=== PATIENT | female | born 1960 | race Caucasian/White ===

== ENCOUNTER → 2016-02-07 | Outpatient (CLI) | payer OTHER ==
[~2016-02-07] MED LIST: AMOX875T PO; DICL-201 PO; HYDR-3419 PO; ONDA4TAB10 SL; TRAM-10 PO
[2016-02-07 15:31] LABS: CHOLESTEROL/HDL RATIO 3.7
== END | disposition home or self-care (01) ==
LOC: C.LAB 10:59
PROVIDERS: ATTEND Family Medicine
DX: Z00.00 Encounter for general adult medical examination without abnormal findings (principal); Z13.220 Encounter for screening for lipoid disorders; Z11.59 Encounter for screening for other viral diseases; E55.9 Vitamin D deficiency, unspecified

== ENCOUNTER → 2016-02-08 | Outpatient (CLI) | payer OTHER ==
--- NOTE | 2016-02-08 15:10 | MAMMOGRAPHY REPORT ---
BILATERAL DIGITAL SCREENING MAMMOGRAM WITH CAD: 02/08/2016 CLINICAL HISTORY: Routine screening examination. TECHNIQUE: Bilateral CC and MLO views were obtained. Current study was also evaluated with a Comput er Aided Detection (CAD) system. COMPARISON: Comparison is made to exams dated: 11/24/2014 mammogram, 05/14/2012 mammogram, 01/31/2011 mammogram, 10/29/2009 mammogram - [facility], and 01/04/2007. BREAST COMPOSITION: The tissue of both breasts is almost entirely fatty. FINDINGS: There are stable benign-appearing microcalcifications bilaterally. No suspicious mass, ar chitectural distortion or cluster of new, suspicious microcalcifications is seen. IMPRESSION: ACR BI-RADS CATEGORY 1: NEGATIVE There is no mammographic evidence of malignancy. A 1 year screening mammogram is recommended. The p atient will receive written notification of the results. Approximately 10% of breast cancers are not detected with mammography. A negative mammographic repor t should not delay biopsy if a clinically suggestive mass is present. Davida Castaneda M.D. ay/:02/08/2016 13:55:20 Brand Communications Manager: Malu DEUTSCH(Rigoberto)(M), [facility] letter sent: Normal 1/2 BI-RADS Code: ACR BI-RADS Category 1: Negative
== END | disposition home or self-care (01) ==
LOC: C.MAMM 13:18
PROVIDERS: ATTEND Family Medicine
DX: Z12.31 Encounter for screening mammogram for malignant neoplasm of breast (principal)

== ENCOUNTER → 2016-04-19 | Outpatient (CLI) | payer OTHER ==
--- NOTE | 2016-04-19 12:35 | DIAGNOSTIC IMAGING REPORT ---
LEFT SHOULDER 3 VIEWS HISTORY: Left shoulder pain. Fall. COMPARISON: None. FINDINGS: There is no fracture or dislocation. Soft tissues are unremarkable. Multiple metallic anchors at the humeral head. The left clavicle appears intact. IMPRESSION: No fracture or dislocation within the left shoulder. Electronically signed by: Elton Melo M.D. 04/19/2016 12:34 PM Dictated Date/Time: 04/19/2016 12:29 PM
== END | disposition home or self-care (01) ==
LOC: C.RAD 12:11
PROVIDERS: ATTEND Family Medicine
DX: M25.512 Pain in left shoulder (principal)

== ENCOUNTER → 2016-05-03 | Outpatient (CLI) | payer OTHER | END | disposition home or self-care (01) | LOC: C.CPL 10:35 | PROVIDERS: ATTEND Orthopaedic Surgery | DX: Z01.810 Encounter for preprocedural cardiovascular examination (principal) ==

== ENCOUNTER 2016-06-08 05:04 | Emergency (ER) | payer OTHER ==
[~2016-06-08] VITALS: Ht 162.6 cm; Wt 119.8 kg
[~2016-06-08 05:04] MED LIST changes: -AMOX875T PO; -HYDR-3419 PO; -ONDA4TAB10 SL
[2016-06-08 05:09] VITALS: TEMP 36.4; Ht 162.6 cm; Wt 119.8 kg
[2016-06-08] MEDS ORDERED: ONDANSETRON INJ 2 MG/ML 2 ML VIAL IV STA (05:21)
[2016-06-08] MEDS ORDERED: HYDROmorphone INJ 1 MG/ML SYR IV STA (05:21)
[2016-06-08] MEDS ORDERED: SODIUM CHLORIDE 0.9% 1000ML 1,000 ML IV STA (05:21)
--- NOTE | 2016-06-08 05:26 | EMERGENCY ROOM VISIT NOTE ---
History Report prepared by Mar: Aramis Rogers Under the Supervision of: Dr. Tyson Navarro M.D. First contact with patient: 05:11 Chief Complaint: ABDOMINAL PAIN Stated Complaint: SEVERE ABDOMINAL PAIN History of Present Illness The patient is a 56 year old female who presents to the Emergency Room with complaints of severe left flank pain starting last night and worsening this morning. She reports some pain radiation to the back. She also complains of nausea but denies vomiting. The patient has been having diarrhea. She reports a normal appetite and a normal fluid intake. She denies fevers, chills, chest pain , urinary symptoms, or any other complaints. She notes her current pain is different than her past diverticulitis pain. She denies any history of kidney stones. Source of History: patient Onset: last night Position: other (left flank) Symptom Intensity: severe Timing: worsening Associated Symptoms: + diarrhea, + nausea, No chest pain, No chills, No fevers, No urinary symptoms, No vomiting Review of Systems See HPI for pertinent positives & negatives. A total of 10 systems reviewed and were otherwise negative. Past Medical & Surgical Medical Problems: (1) Shoulder strain (2) Subconjunctival hemorrhage Family History FHx: cancer Social History Smoking Status: Current Every Day Smoker Alcohol Use: occasionally Marital Status: Housing Status: lives alone Occupation Status: employed Current/Historical Medications Scheduled Amoxicillin & Pot Clavulanate (Augmentin 875-125 mg), 875 MG PO BID Diclofenac (Voltaren), 75 MG PO BID Scheduled PRN Hydrocodon/Acetaminophen 5MG/300MG (Vicodin (5MG/300MG)), 1-2 TAB PO Q4H PRN for Pain Ondasetron Odt (Zofran Odt), 4-8 MG SL Q6H PRN for Nausea Tramadol (Ultram), 50 MG PO BID PRN for Pain Allergies Coded Allergies: Codeine (Unverified Allergy, Unknown, loopy feeling, 06/08/16) Acetaminophen (Verified Adverse Reaction, Unknown, "jumping out of my skin ", 06/08/16) Oxycodone (Verified Adverse Reaction, Unknown, "jumping out of my skin", ) Physical Exam Vital Signs Date Time Temp Pulse Resp B/P Pulse Ox O2 Delivery O2 Flow Rate FiO2 06/08/16 06:33 74 18 150/72 95 Room Air 06/08/16 05:09 36.4 88 20 186/85 100 Room Air Physical Exam GENERAL: Patient is uncomfortable appearing and in moderate distress. HEENT: No acute trauma, normocephalic atraumatic, mucous membranes moist, no nasal congestion, no scleral icterus. NECK: No stridor, no adenopathy, no meningismus, trachea is midline. LUNGS: No dyspnea. Clear to auscultation and equal bilaterally. No wheeze, no rhonchi. HEART: Regular rate and rhythm. No murmurs, rubs, gallops appreciated. ABDOMEN: Soft, nontender, bowel sounds positive, no masses appreciated, no peritonitis. BACK: No midline tenderness, mild left CVA tenderness EXTREMITIES: Normal motion all extremities, no cyanosis, no edema. NEUROLOGIC: Alert and oriented, no acute motor or sensory deficits, no focal weakness, cranial nerves grossly intact. SKIN: No rash, no jaundice, no diaphoresis. Medical Decision & Procedures ER Provider Diagnostic Interpretation: CT results as stated below per interpretation by me and the radiologist: CT ABDOMEN AND PELVIS No hydronephrosis or hydroureter. No radiopaque ureteral stone. Diverticulosis, but no evidence for diverticulitis. 2.4 cm left adnexal cyst. May consider nonemergent/outpatient ultrasound to ensure resolution. Remainder of noncontrast study shows no definite evidence for an acute inflammatory process. Radiologist: Rhys Puri MD Laboratory Results 06/08/16 05:25 Red Blood Count 4.75, Mean Corpuscular Volume 94.1, Mean Corpuscular Hemoglobin 31.4, Mean Corpuscular Hemoglobin Concent 33.3, Mean Platelet Volume 8.7, Neutrophils (%) (Auto) 67.3, Lymphocytes (%) (Auto) 24.0, Monocytes (%) (Auto) 7.2, Eosinophils (%) (Auto) 1.0, Basophils (%) (Auto) 0.1, Neutrophils # (Auto) 5.13, Lymphocytes # (Auto) 1.83, Monocytes # (Auto) 0.55, Eosinophils # (Auto) 0.08, Basophils # (Auto) 0.01 06/08/16 05:25 Test 06/08/16 05:25 06/08/16 06:28 White Blood Count 7.63 K/uL (4.8-10.8) Red Blood Count 4.75 M/uL (4.2-5.4) Hemoglobin 14.9 g/dL (12.0-16.0) Hematocrit 44.7 % (37-47) Mean Corpuscular Volume 94.1 fL (80-100) Mean Corpuscular Hemoglobin 31.4 pg (25-34) Mean Corpuscular Hemoglobin Concent 33.3 g/dl (32-36) Platelet Count 279 K/uL (130-400) Mean Platelet Volume 8.7 fL (7.4-10.4) Neutrophils (%) (Auto) 67.3 % Lymphocytes (%) (Auto) 24.0 % Monocytes (%) (Auto) 7.2 % Eosinophils (%) (Auto) 1.0 % Basophils (%) (Auto) 0.1 % Neutrophils # (Auto) 5.13 K/uL (1.4-6.5) Lymphocytes # (Auto) 1.83 K/uL (1.2-3.4) Monocytes # (Auto) 0.55 K/uL (0.11-0.59) Eosinophils # (Auto) 0.08 K/uL (0-0.5) Basophils # (Auto) 0.01 K/uL (0-0.2) RDW Standard Deviation 47.2 fL (36.4-46.3) RDW Coefficient of Variation 13.7 % (11.5-14.5) Immature Granulocyte % (Auto) 0.4 % Immature Granulocyte # (Auto) 0.03 K/uL (0.00-0.02) Anion Gap 7.0 mmol/L (3-11) Est Creatinine Clear Calc Drug Dose 114.4 ml/min Estimated GFR () 112.3 Estimated GFR (Non- 96.9 BUN/Creatinine Ratio 18.5 (10-20) Calcium Level 9.1 mg/dl (8.5-10.1) Total Bilirubin 0.5 mg/dl (0.2-1) Direct Bilirubin 0.1 mg/dl (0-0.2) Aspartate Amino Transf (AST/SGOT) 15 U/L (15-37) Alanine Aminotransferase (ALT/SGPT) 44 U/L (12-78) Alkaline Phosphatase 67 U/L (45-117) Total Protein 7.5 gm/dl (6.4-8.2) Albumin 4.2 gm/dl (3.4-5.0) Lipase 157 U/L (73-393) Urine Color YELLOW Urine Appearance CLEAR (CLEAR) Urine pH 5.0 (4.5-7.5) Urine Specific [place] 1.009 (1.000-1.030) Urine Protein NEG (NEG) Urine Glucose (UA) NEG (NEG) Urine Ketones NEG (NEG) Urine Occult Blood TRACE (NEG) Urine Nitrite NEG (NEG) Urine Bilirubin NEG (NEG) Urine Urobilinogen NEG (NEG) Urine Leukocyte Esterase NEG (NEG) Urine WBC (Auto) 1-5 /hpf (0-5) Urine RBC (Auto) 0-4 /hpf (0-4) Urine Hyaline Casts (Auto) 1-5 /lpf (0-5) Urine Epithelial Cells (Auto) 10-20 /lpf (0-5) Urine Bacteria (Auto) NEG (NEG) Laboratory results as reviewed by me. Medications Administered Medications (Trade) Dose Ordered Sig/[place]dee Route Start Time Stop Time Status Last Admin Dose Admin Hydromorphone HCl (Dilaudid Inj) 1 mg NOW STAT IV 06/08/16 05:21 06/08/16 05:23 DC 06/08/16 05:41 1 MG Ondansetron HCl 4 mg 4 mg NOW STAT IV 06/08/16 05:21 06/08/16 05:23 DC 06/08/16 05:41 4 MG Sodium Chloride (Nss 1000ml) 1,000 ml @ 999 mls/hr Q1H1M STAT IV 06/08/16 05:21 06/08/16 06:21 DC 06/08/16 05:41 999 MLS/HR Amoxicillin/ Clavulanate Potassium (Augmentin Tab) 875 mg ONE ONCE PO 06/08/16 07:00 06/08/16 07:01 DC 06/08/16 06:51 875 MG ED Course 0511: The patient was evaluated in room A09B. A complete history and physical exam was performed. 0521: Sodium Chloride 1000 ml @ 999 mls/hr IV, Zofran Inj 4 mg IV, Dilaudid Inj 1 mg IV 0645: Reevaluated the patient. Discussed results and discharge instructions: She verbalized understanding and agreement. The patient is ready for discharge. Medical Decision Differential: Renal Colic, Pyelonephritis, Hydronephrosis, Appendicitis, Diverticulitis, Retroperitoneal Bleed/Infection, Aortic Pathology, MSK, Neurologic Pathology, amongst other pathologies entertained. 56 yr old female with LLQ pain radiating to left flank acutely this morning with episode yesterday as well. No evidence stone on CT. Large amount of diverticular disease with our clear evidence of infection on non-con CT. WBC OK , no Fever. Seems reasonable to treat as early diverticulitis and thus will treat with Augmentin. Add on Vicodin and Zofran for symptoms control. Discussed need for PCP follow up and to discuss seeing Spun Paste Machine Operator for cyst. Stable, feeling well and non-surgical abdomen. Stable at discharge. Reviewed symptoms requiring return. Impression Primary Impression: Diverticulitis Additional Impressions: Left lower quadrant pain Cyst of left ovary Scribe Attestation The scribe's documentation has been prepared under my direction and personally reviewed by me in its entirety. I confirm that the note above accurately reflects all work, treatment, procedures, and medical decision making performed by me. Departure Information Dispostion Home / Self-Care Prescriptions Amoxicillin & Pot Clavulanate (Augmentin 875-125 mg) 1 Tab Tab 875 MG PO BID for 10 Days, #20 TAB Prov: Tyson Navarro M.D. 06/08/16 Ondasetron Odt (ZOFRAN ODT) 4 Mg Tab 4-8 MG SL Q6H Y for Nausea, #15 TAB Prov: Tyson Navarro M.D. 06/08/16 Hydrocodon/Acetaminophen 5MG/300MG (VICODIN (5MG/300MG)) 1 Tab Tab 1-2 TAB PO Q4H Y for Pain, #15 TAB Prov: Tyson Navarro M.D. 06/08/16 Referrals Linda Ortez MD (PCP) Forms Call Back Authorization, HOME CARE DOCUMENTATION FORM, IMPORTANT VISIT INFORMATION Patient Instructions My [facility] Additional Instructions Please follow up with your primary care provider in the next few days to discuss your symptoms and findings. You should discuss follow up with Gynecology for cyst on left ovary. Return if severe worsening of pain, fevers, vomiting, passing out, blood in stool or other concern. We are here to help. You have received a narcotic pain medication prescription. These medications may cause drowsiness and should not be used with other sedative medications. Do not drive, drink alcohol, perform dangerous activities, nor make important decisions after taking these medications. technician terminal and repeater use or inappropriate use may lead to addiction. You have been examined and treated today on an emergency basis only. This is not a substitute for, or an effort to provide, complete comprehensive medical care. It is impossible to recognize and treat all injuries or illnesses in a single emergency department visit. It is therefore important that you follow up closely with your Primary Physician. Call as soon as possible for an appointment so you can review all labs, imaging and other testing that you had. Return to Emergency Department, call 911 or seek immediate medical attention if you feel your symptoms are worsening. Problem Qualifiers Primary Impression: Diverticulitis Diverticulitis site: large intestine Diverticulitis bleeding: without bleeding Diverticulitis complication: without perforation or abscess Qualified Codes: K57.32 - Diverticulitis of large intestine without perforation or abscess without bleeding
[2016-06-08 05:46] LABS: BASO % 0.1 %; BASO ABS # 0.01 K/uL (0-0.2); COMPLETE YES; HEMATOCRIT 44.7 % (37-47); IG% 0.4 %; LYMPH ABS # 1.83 K/uL (1.2-3.4); MEAN CELL VOLUME 94.1 fL (80-100); MEAN CORPUSCULAR HEMOGLOBIN 31.4 pg (25-34); MEAN CORPUSCULAR HGB CONC 33.3 g/dl (32-36); MEAN PLATELET VOLUME 8.7 fL (7.4-10.4); MONO % 7.2 %; NEUT % 67.3 %; PLATELET COUNT 279 K/uL (130-400); RED BLOOD COUNT 4.75 M/uL (4.2-5.4); WHITE BLOOD COUNT 7.63 K/uL (4.8-10.8)
[2016-06-08 06:05] LABS: BUN/CREATININE RATIO 18.5 (10-20); CALCIUM 9.1 mg/dl (8.5-10.1); CREATININE 0.7 mg/dl (0.60-1.20); POTASSIUM 3.7 mmol/L (3.5-5.1)
[2016-06-08 06:46] LABS: URINE APPEARANCE CLEAR (CLEAR); URINE BILIRUBIN NEG (NEG); URINE COLOR YELLOW; URINE NITRITE NEG (NEG); URINE SPECIFIC GRAVITY 1.009 (1.000-1.030); UROBILINOGEN NEG (NEG); ZZUR CULT IF INDIC CLEAN CATCH NO
[2016-06-08 06:52] LABS: MANUAL MICROSCOPIC REQUIRED? NO; REVIEW REQ? NO
[2016-06-08] MEDS ORDERED: AMOX875T PO (06:57)
[2016-06-08] MEDS ORDERED: HYDR-3419 PO (06:57)
[2016-06-08] MEDS ORDERED: ONDA4TAB10 SL (06:57)
--- NOTE | 2016-06-08 06:59 | DIAGNOSTIC IMAGING REPORT ---
CT OF THE ABDOMEN AND PELVIS WITHOUT CONTRAST, STONE PROTOCOL CLINICAL HISTORY: Left flank pain. COMPARISON STUDY: CT of the abdomen and pelvis September 25, 2014. TECHNIQUE: Helical axial images of the abdomen and pelvis were obtained without IV or oral contrast according to renal stone protocol. FINDINGS: Band-like left lower lobe opacity reflects atelectasis. There is also subsegmental right lower lobe atelectasis. No pneumatosis, free air or portal venous gas is present. There are no renal, ureteral or bladder calculi. No hydronephrosis or hydroureter is present. Evaluation of the remainder of the abdomen and pelvis is suboptimal on this unenhanced exam. There is fatty infiltration of the liver. Unenhanced images of the adrenal glands and pancreas are normal. There is extensive colonic diverticulosis without evidence for acute diverticulitis. A 2.5 cm cyst or dominant follicle with the left ovary is noted. There is no free fluid. There is a small fat-containing umbilical hernia. No suspicious skeletal lesions are identified. IMPRESSION: 1. No urinary calculi or hydronephrosis. 2. No acute process within the abdomen or pelvis on unenhanced exam. 3. Colonic diverticulosis without evidence for acute diverticulitis. 4. Fatty liver. 5. 2.5 cm cyst or dominant follicle within the left ovary. Electronically signed by: Alden Bro M.D. 06/08/2016 6:58 AM Dictated Date/Time: 06/08/2016 6:54 AM
[2016-06-08] MEDS ORDERED: AMOXICILLIN/CLAVULANATE TAB 875 MG TAB PO ONE (07:00)
[2016-06-08 07:10] VITALS: BP 116/68; PULSE 67; O2SAT 98
== END 2016-06-08 07:11 | disposition home or self-care (01) ==
LOC: C.EDB 05:05 → C.EDA 07:11
DX: K57.32 Diverticulitis of large intestine without perforation or abscess without bleeding (principal); N83.202 Unspecified ovarian cyst, left side; Z80.9 Family history of malignant neoplasm, unspecified; F17.210 Nicotine dependence, cigarettes, uncomplicated; Z79.899 Other long term (current) drug therapy

== ENCOUNTER → 2016-06-30 | Outpatient (CLI) | payer OTHER ==
[~2016-06-30] MED LIST changes: +HYDR-3419 PO; +ONDA4TAB10 SL
== END | disposition home or self-care (01) ==
LOC: C.PAPS 14:35
PROVIDERS: ATTEND Obstetrics & Gynecology
DX: Z01.419 Encounter for gynecological examination (general) (routine) without abnormal findings (principal)

== ENCOUNTER → 2016-08-22 | Outpatient (CLI) | payer OTHER | END | disposition home or self-care (01) | LOC: C.LAB 12:08 | PROVIDERS: ATTEND Family Medicine | DX: E55.9 Vitamin D deficiency, unspecified (principal) ==

== ENCOUNTER → 2016-11-29 | Outpatient (CLI) | payer OTHER ==
[2016-11-29 17:27] LABS: BASO % 0.2 %; BASO ABS # 0.02 K/uL (0-0.2); COMPLETE YES; EOS % 1.2 %; HEMATOCRIT 42.6 % (37-47); IG% 0.4 %; LYMPH % 26.7 %; MEAN CELL VOLUME 93.8 fL (80-100); MEAN CORPUSCULAR HEMOGLOBIN 31.3 pg (25-34); MEAN CORPUSCULAR HGB CONC 33.3 g/dl (32-36); MEAN PLATELET VOLUME 9.2 fL (7.4-10.4); NEUT % 66.5 %; PLATELET COUNT 255 K/uL (130-400); RED BLOOD COUNT 4.54 M/uL (4.2-5.4); WHITE BLOOD COUNT 8.98 K/uL (4.8-10.8)
[2016-11-29 17:53] LABS: ALT/SGPT 31 U/L (12-78); AST/SGOT 14 U/L (15-37); BLOOD UREA NITROGEN 17 mg/dl (7-18); BUN/CREATININE RATIO 19.9 (10-20); CALCIUM 9.1 mg/dl (8.5-10.1); CARBON DIOXIDE 26 mmol/L (21-32); CHLORIDE 106 mmol/L (98-107); CREATININE 0.83 mg/dl (0.60-1.20); GLUCOSE 118 mg/dl (70-99); POTASSIUM 3.5 mmol/L (3.5-5.1); SODIUM 140 mmol/L (136-145)
[2016-11-29 18:04] LABS: ALB/GLOB RATIO 1.1 (0.9-2); ALKALINE PHOSPHATASE 68 U/L (45-117); C-REACTIVE PROTEIN 0.82 mg/dl (0-0.29); RHEUMATOID FACTOR < 10.0 U/mL (0-15)
[2016-11-29 19:41] LABS: LYME DISEASE AB IGM NEG (NEG)
[2016-11-29 19:42] LABS: LYME DISEASE AB IGG NEG (NEG)
== END | disposition home or self-care (01) ==
LOC: C.LAB1850 17:07
PROVIDERS: ATTEND Family Medicine
DX: M25.50 Pain in unspecified joint (principal)

== ENCOUNTER → 2017-09-14 | Outpatient (CLI) | payer OTHER ==
[~2017-09-14] MED LIST changes: -HYDR-3419 PO; -ONDA4TAB10 SL
[2017-09-14 13:13] LABS: BASO % 0.2 %; BASO ABS # 0.01 K/uL (0-0.2); EOS % 0.9 %; EOS ABS # 0.05 K/uL (0-0.5); HEMATOCRIT 45.1 % (37-47); HEMOGLOBIN 14.9 g/dL (12.0-16.0); IG# 0.01 K/uL (0.00-0.02); LYMPH % 16.9 %; MEAN CELL VOLUME 93.2 fL (80-100); MEAN CORPUSCULAR HEMOGLOBIN 30.8 pg (25-34); MONO % 6.6 %; MONO ABS # 0.35 K/uL (0.11-0.59); NEUT % 75.2 %; NEUT ABS # 4.01 K/uL (1.4-6.5); PLATELET COUNT 225 K/uL (130-400); RED CELL DISTRIBUTION WIDTH CV 14.2 % (11.5-14.5); RED CELL DISTRIBUTION WIDTH SD 48.2 fL (36.4-46.3); WHITE BLOOD COUNT 5.33 K/uL (4.8-10.8)
[2017-09-14 14:52] LABS: ALBUMIN 3.7 gm/dl (3.4-5.0); ALKALINE PHOSPHATASE 63 U/L (45-117); ALT/SGPT 38 U/L (12-78); AST/SGOT 17 U/L (15-37); BLOOD UREA NITROGEN 13 mg/dl (7-18); CALCIUM 8.5 mg/dl (8.5-10.1); CARBON DIOXIDE 24 mmol/L (21-32); CREATININE 0.56 mg/dl (0.60-1.20); GLUCOSE 82 mg/dl (70-99); POTASSIUM 3.7 mmol/L (3.5-5.1); SODIUM 137 mmol/L (136-145); TOTAL PROTEIN 6.9 gm/dl (6.4-8.2)
== END | disposition home or self-care (01) ==
LOC: C.LAB 11:58
PROVIDERS: ATTEND Family Medicine
DX: R10.814 Left lower quadrant abdominal tenderness (principal)

== ENCOUNTER → 2017-09-17 | Outpatient (CLI) | payer OTHER ==
[~2017-09-17] MED LIST changes: +OPTIRAY 320 IV PRN
--- NOTE | 2017-09-17 16:24 | DIAGNOSTIC IMAGING REPORT ---
ABDOMEN AND PELVIS CT WITH IV AND ORAL CONTRAST CT DOSE: 962.85 mGy.cm HISTORY: G47.33 IRA (obstructive sleep apnea)Pt with LLQ abd pain and ten TECHNIQUE: Multiaxial CT images of the abdomen and pelvis were performed following the use of intravenous and oral contrast. A dose lowering technique was utilized adhering to the principles of ALARA. COMPARISON STUDY: Abdomen and pelvis CT 06/08/2016. FINDINGS: Calcified granuloma within the right lower lobe. No pneumoperitoneum. No pneumatosis. No fractures within the visualized osseous structures. The liver, gallbladder, spleen, adrenal glands, and pancreas are unremarkable. Subcentimeter hypodense lesion within the lower pole the left kidney is too small characterize. The right kidney enhances normally. No hydronephrosis. No retroperitoneal lymphadenopathy. The bladder, uterus, right ovary are unremarkable. Stable 2.6 cm cyst within the left ovary. No bowel wall thickening or obstruction. Colonic diverticulosis. Normal appendix. IMPRESSION: 1. No bowel wall thickening or obstruction. 2. No renal stones or hydronephrosis. 3. Colonic diverticulosis. 4. Normal appendix. 5. No change in the 2.6 cm left ovarian cyst. Electronically signed by: Elton Melo M.D. 09/17/2017 4:23 PM Dictated Date/Time: 09/17/2017 4:12 PM
== END | disposition home or self-care (01) ==
LOC: C.CTS 13:16
PROVIDERS: ATTEND Family Medicine
DX: R10.32 Left lower quadrant pain (principal); R11.0 Nausea; R19.7 Diarrhea, unspecified; K57.90 Diverticulosis of intestine, part unspecified, without perforation or abscess without bleeding; Z87.19 Personal history of other diseases of the digestive system

== ENCOUNTER → 2017-09-18 | Outpatient (CLI) | payer OTHER ==
[~2017-09-18] MED LIST changes: -OPTIRAY 320 IV PRN
--- NOTE | 2017-09-19 13:51 | MAMMOGRAPHY REPORT ---
BILATERAL DIGITAL SCREENING MAMMOGRAM TOMOSYNTHESIS WITH CAD: 09/18/2017 CLINICAL HISTORY: Routine screening. Patient has no complaints. TECHNIQUE: The study was acquired using full field digital technology and interpreted from soft copy. Breast tomosynthesis in addition to standard 2D mammography was performed. Current study was also ev aluated with a Computer Aided Detection (CAD) system. COMPARISON: Comparison is made to exams dated: 02/08/2016 mammogram, 11/24/2014 mammogram, 05/14/2012 ma mmogram, 01/31/2011 mammogram, 10/29/2009 mammogram - [facility], and 01/04/2007. BREAST COMPOSITION: The tissue of both breasts is almost entirely fatty. FINDINGS: There are scattered stable benign-appearing microcalcifications in the breasts. Stable nod ular asymmetry in the lateral anterior right breast, which is unchanged dating back to at least 01/31, therefore likely benign. No new suspicious mass, architectural distortion or cluster of microc alcifications is seen. IMPRESSION: ACR BI-RADS CATEGORY 1: NEGATIVE There is no mammographic evidence of malignancy. A 1 year screening mammogram is recommended.( 019) The patient will receive written notification of the results. Some breast cancers are not detected with mammography. A negative mammographic report should not daniel y biopsy if a clinically suggestive mass is present. Davida Castaneda M.D. ay/:09/18/2017 15:32:14 Insulation Foreman: RT Jeramy(R)(M), [facility] letter sent: Normal 1/2 BI-RADS Code: ACR BI-RADS Category 1: Negative
== END | disposition home or self-care (01) ==
LOC: C.MAMM 13:36
PROVIDERS: ATTEND Family Medicine
DX: Z12.31 Encounter for screening mammogram for malignant neoplasm of breast (principal)